=== PATIENT | female | born 1965 | race Caucasian/White ===

== ENCOUNTER 2019-04-04 14:39 | Outpatient (CLI) | payer MEDICAID ==
[~2019-04-04 14:39] MED LIST: GUAI1TBM19 PO; HYDR-3965 PO; LEVO75TA PO; MECL-111 PO; OMEP-84 PO; ONDA4TAB12 PO
== END 2019-04-04 23:59 | disposition home or self-care (01) ==
LOC: RAD 14:39
PROVIDERS: ATTEND Psychiatry & Neurology Neurology
DX: R13.14 Dysphagia, pharyngoesophageal phase (principal); R13.11 Dysphagia, oral phase; R49.0 Dysphonia; K21.9 Gastro-esophageal reflux disease without esophagitis; G20 Parkinson's disease; G23.9 Degenerative disease of basal ganglia, unspecified; G11.9 Hereditary ataxia, unspecified; G90.3 Multi-system degeneration of the autonomic nervous system; I10 Essential (primary) hypertension; Z79.899 Other long term (current) drug therapy; Z87.891 Personal history of nicotine dependence
CPT/HCPCS: 74230